=== PATIENT | female | born 1985 | race Caucasian/White ===

== ENCOUNTER 2021-12-17 02:13 | Emergency (ER) | payer MEDICAID ==
[~2021-12-17] VITALS: Ht 165.1 cm; Wt 54.5 kg
[2021-12-17 02:18] VITALS: BP 133/88
== END 2021-12-17 04:48 | disposition home or self-care (01) ==
LOC: ER 02:14
DX: F10.129 Alcohol abuse with intoxication, unspecified (principal); V87.7XXA Person injured in collision between other specified motor vehicles (traffic), initial encounter; Y93.89 Activity, other specified; Y92.89 Other specified places as the place of occurrence of the external cause; Y99.8 Other external cause status; Y90.9 Presence of alcohol in blood, level not specified
CPT/HCPCS: 99283